=== PATIENT | female | born 1985 | race Caucasian/White ===

== ENCOUNTER 2018-06-24 07:27 | Day surgery (SDC) | payer OTHER ==
[2018-06-22 09:23] VITALS: BMI 28.0
[~2018-06-24 07:27] MED LIST: LACTATED RINGERS 1,000 ML IV SCH; LIDOCAINE 1% 20 ML VIAL (10MG/ML) FOR IV START INTRADERMA PRN; MIDAZOLAM 2 MG/2 ML VIAL IV PRN
[2018-06-24 08:07] VITALS: RESP 16; TEMP 97.4
[2018-06-24] MEDS ORDERED: LIDOCAINE 1% INJ 10MG/ML (20 ML MDV) ONE (09:01)
[2018-06-24] MEDS ORDERED: PROPOFOL 10 MG/ML 20 ML VIAL IV ONE (09:01)
--- NOTE | 2018-06-24 09:08 | P.GSHP ---
History of Present Illness H&P Date: 06/24/18 CHIEF COMPLAINT: Rectal bleeding HISTORY OF PRESENT ILLNESS: The patient is a 33-year-old female who presents with history of rectal bleeding. Lower endoscopy was offered for further evaluation and management. PAST MEDICAL HISTORY: Please see list. PAST SURGICAL HISTORY: Please see list. MEDICATIONS: Please see list. ALLERGIES: Please see list. SOCIAL HISTORY: No illicit drug use FAMILY HISTORY: No reports of Crohn disease or ulcerative colitis. REVIEW OF ORGAN SYSTEMS: CONSTITUTIONAL: No reports of fevers or chills. PHYSICAL EXAM: VITAL SIGNS: Stable GENERAL: Well-developed pleasant in no acute distress. HEENT: No scleral icterus. Extraocular movements grossly intact. Moist buccal mucosa. NECK: Supple without lymphadenopathy. CHEST: Unlabored respirations. Equal bilateral excursions. CARDIOVASCULAR: Regular rate and rhythm. Distal 2+ pulses. ABDOMEN: Soft, nontender, nondistended. MUSCULOSKELETAL: No clubbing, cyanosis, or edema. ASSESSMENT: 1. Rectal bleeding PLAN: 1. Recommend proceeding with a lower endoscopy Past Medical History Past Medical History: No Reported History Additional Past Medical History / Comment(s): Hemorrhoids/ rectal bleeding; hx of bronchitis History of Any Multi-Drug Resistant Organisms: None Reported Past Surgical History: Orthopedic Surgery Additional Past Surgical History / Comment(s): R hip arthroscopy; wisdom teeth Past Anesthesia/Blood Transfusion Reactions: No Reported Reaction Past Psychological History: No Psychological Hx Reported Smoking Status: Never smoker Past Alcohol Use History: None Reported Past Drug Use History: None Reported - Past Family History Father Family Medical History: No Reported History Medications and Allergies Home Medications Medication Instructions Recorded Confirmed Type Dextroamphetamine/Amphetamine 30 mg PO QAM 06/16/18 06/24/18 History [Adderall Xr] Etonogestrel [Nexplanon] 1 implant SQ [id number] 06/16/18 06/24/18 History Allergies Allergy/AdvReac Type Severity Reaction Status Date / Time No Known Allergies Allergy Verified 06/24/18 07:49 Surgical - Exam Vital Signs Temp Pulse Resp BP Pulse Ox 97.4 F L 64 16 107/59 100 06/24/18 07:54 06/24/18 07:54 06/24/18 07:54 06/24/18 07:54 06/24/18 07:54
--- NOTE | 2018-06-24 09:37 | P.PCN ---
Date of Procedure: 06/24/18 Description of Procedure: PREOPERATIVE DIAGNOSIS: History of rectal bleeding POSTOPERATIVE DIAGNOSIS: History of rectal bleeding Internal and external hemorrhoids, complicated, grade 3/4 Sigmoid colitis OPERATION: Colonoscopy to the ileocecal valve and appendiceal orifice Colonoscopy with cold forceps biopsies along sigmoid colon. SURGEON: Aletha Brown MD. ANESTHESIA: MAC. INDICATIONS: The patient is a 33-year-old female who presents for colonoscopy due to rectal bleeding. Benefits and risks were described and informed consent was obtained. DESCRIPTION OF PROCEDURE: The patient had undergone Gatorade, MiraLAX and Dulcolax prep. She had been brought into the operating room and laid in the left lateral decubitus position. After adequate intravenous sedation, the rectum was examined with 2% lidocaine jelly. External hemorrhoids were encountered. The rectal tone was within normal limits. No lesions were palpated in the rectal vault. An Olympus colonoscope was advanced until the ileocecal valve and appendiceal orifice were clearly viewed. The prep was excellent with clear visualization of the mucosal folds. The scope was removed with visualization of each mucosal fold. No scattered diverticulosis was encountered. No colonic polyps were found. Sigmoid focal colitis was found between 40 and 50 cm from the anal verge, biopsies were obtained. Retroflexion of the scope demonstrated grade 3 internal hemorrhoids without active bleeding or inflammation. The colon was desufflated. The patient had tolerated the procedure well. Withdrawal time was over 6 minutes. FINDINGS: Internal hemorrhoids, grade 3 External prolapsed hemorrhoids, grade 3 No arteriovenous malformations. No adenomatous polyps. No diverticulosis. Sigmoid focal colitis was found between 40 and 50 cm from the anal verge, biopsies were obtained. RECOMMENDATIONS: Lower endoscopy as needed Plan - Discharge Summary New Discharge Prescriptions: No Action Dextroamphetamine/Amphetamine [Adderall Xr] 30 mg PO QAM Etonogestrel [Nexplanon] 1 implant SQ [id number] Discharge Medication List Dextroamphetamine/Amphetamine [Adderall Xr] 30 mg PO QAM 06/16/18 [History] Etonogestrel [Nexplanon] 1 implant SQ [id number] 06/16/18 [History] Follow up Appointment(s)/Referral(s): Aletha Brown MD [STAFF PHYSICIAN] - As Needed Patient Instructions/Handouts: *Surgery [facility] - (Anesthesia) Endoscopy Discharge Instructions, Colonoscopy (GEN)
[2018-06-24 09:38] VITALS: BP 111/75; PULSE 74
--- NOTE | 2018-06-28 11:42 | CDI ---
Outpatient Documentation Clarification Form Date: 06/28/18 CDS/Staff Nuclear Weapons Officer Name: Keli Anthony Phone: If any questions, call Megan Rice Warehouse Lead at [phone] Patient Name: Katlyn Marshall Admit Date: 06/24/18 Discharge Date: 06/24/18 ATTENTION: The [facility] Coding Staff appreciate your assistance in clarifying documentation. Please respond to the clarification below the line at the bottom and electronically sign. The [facility] Coding staff will review the response and follow-up if needed. Please note: Queries are made part of the Legal Health Record. If you have any questions, please contact the Warehouse Lead. Dear Dr. Brown, What is the cause of the rectal bleeding? Colitis and hemorrhoids in notes Thank you for your kind consideration. KM 06/28/18 @ [address] [facility]
== END 2018-06-24 09:54 | disposition home or self-care (01) ==
LOC: ORWHC2ENDO 07:27
PROVIDERS: ATTEND Surgery Plastic and Reconstructive Surgery
DX: K64.2 Third degree hemorrhoids (principal); K64.4 Residual hemorrhoidal skin tags; K52.9 Noninfective gastroenteritis and colitis, unspecified; F98.8 Other specified behavioral and emotional disorders with onset usually occurring in childhood and adolescence; Z79.3 Long term (current) use of hormonal contraceptives; Z79.899 Other long term (current) drug therapy
CPT/HCPCS: 81025; 88305; 45380; J2001; J2704

== ENCOUNTER 2019-04-28 23:49 | Emergency (ER) | payer OTHER ==
--- NOTE | 2019-04-29 00:55 | ED ---
General Adult HPI - General Source: patient Mode of arrival: wheelchair Limitations: no limitations <Kel Patrick Magdy - Last Filed: 04/29/19 01:05> <PaolochiquisJesus - Last Filed: 04/29/19 02:13> - General Chief complaint: Chest Pain Stated complaint: Chest Tightness Time Seen by Provider: 04/29/19 00:03 - History of Present Illness Initial comments: Dictation was produced using [employer] dictation software. please excuse any grammatical, word or spelling errors. Chief Complaint: 33-year-old female presents with chest pain and left upper extremity weakness. History of Present Illness: 33-year-old female she presents today with chief complaint of chest pain. She states that the pain as sharp and radiates to her back. She also feels slightly weak in her left upper extremity. She reports that the pain does radiate to her left shoulder area. Patient has any past medical history. Patient has family history of cardiac disease. Patient denies any cardiac history. She does also report feeling slightly sick to her stomach. She states that prior to the onset of her symptoms she was having a intense discussion with her . She denies any history of anxiety. The ROS documented in this emergency department record has been reviewed and confirmed by me. Those systems with pertinent positive or negative responses have been documented in the HPI. All other systems are other negative and/or noncontributory. PHYSICAL EXAM: General Impression: Alert and oriented x3, not in acute distress HEENT: Normocephalic atraumatic, extra-ocular movements intact, pupils equal and reactive to light bilaterally, mucous membranes moist. Cardiovascular: Heart regular rate and rhythm, S1&S2 audible, no murmurs, rubs or gallops Chest: Lungs clear to auscultation bilaterally, no rhonchi, no wheeze, no rales Abdomen: Bowel sounds present, abdomen soft, non-tender, non-distended, no organomegaly Musculoskeletal: Pulses present and equal in all extremities, no peripheral edema Motor: no focal deficits noted Neurological: CN II-XII grossly intact, no focal motor or sensory deficits noted Skin: Intact with no visualized rashes Psych: Normal affect and mood ED course: 33-year-old female presents chief complaint of chest pain. Patient's chest pain is atypical. She does give some clinical features concerning for acute aortic dissection. On arrival are within acceptable limits. Patient not tachycardic nor is she hypoxic. She is not OF the pills and has no risk factors for pulmonary emboli or deep venous thrombosis. EKG obtained unremarkable.Patient is sent out to Dr. Frankel for follow-up of CT of the chest and lab evaluation. EKG interpretation: Ventricular rate 70, normal sinus rhythm, HI interval 166, care is 84, QTC 425. No HI prolongation, no QTC prolongation, no ST or T-wave changes noted. . Overall, this EKG is unremarkable (Kel Patrick) - Related Data Home Medications Medication Instructions Recorded Confirmed Dextroamphetamine/Amphetamine 30 mg PO QAM 06/16/18 04/28/19 [Adderall Xr] Etonogestrel [Nexplanon] 1 implant SQ [id number] 06/16/18 04/28/19 Allergies Allergy/AdvReac Type Severity Reaction Status Date / Time No Known Allergies Allergy Verified 04/28/19 23:56 Review of Systems ROS Other: All systems not noted in ROS Statement are negative. <Kel Patrick - Last Filed: 04/29/19 01:05> ROS Other: All systems not noted in ROS Statement are negative. <Jesus Brady - Last Filed: 04/29/19 02:13> ROS Statement: Those systems with pertinent positive or pertinent negative responses have been documented in the HPI. Past Medical History Past Medical History: No Reported History Additional Past Medical History / Comment(s): Hemorrhoids/ rectal bleeding; hx of bronchitis History of Any Multi-Drug Resistant Organisms: None Reported Past Surgical History: Orthopedic Surgery Additional Past Surgical History / Comment(s): R hip arthroscopy; wisdom teeth Past Anesthesia/Blood Transfusion Reactions: No Reported Reaction Past Psychological History: No Psychological Hx Reported Smoking Status: Never smoker Past Alcohol Use History: None Reported Past Drug Use History: None Reported - Past Family History Father Family Medical History: No Reported History <Kel Patrick - Last Filed: 04/29/19 01:05> General Exam Limitations: no limitations <Kel Patrick - Last Filed: 04/29/19 01:05> Course Vital Signs 04/28/19 04/29/19 23:52 00:18 Temperature 97.8 F Pulse Rate 81 Respiratory 18 18 Rate Blood Pressure 141/97 O2 Sat by Pulse 100 Oximetry Medical Decision Making - Lab Data Result diagrams: 04/29/19 01:16 04/29/19 01:16 <Jesus Brady - Last Filed: 04/29/19 02:13> - Lab Data Lab Results 04/29/19 04/29/19 04/29/19 Range/Units 01:16 01:16 01:16 WBC 9.3 (3.8-10.6) k/uL RBC 4.22 (3.80-5.40) m/uL Hgb 12.8 (11.4-16.0) gm/dL Hct 37.8 (34.0-46.0) % MCV 89.6 (80.0-100.0) fL MCH 30.3 (25.0-35.0) pg MCHC 33.8 (31.0-37.0) g/dL RDW 12.3 (11.5-15.5) % Plt Count 320 (150-450) k/uL Neutrophils % 72 % Lymphocytes % 18 % Monocytes % 5 % Eosinophils % 2 % Basophils % 1 % Neutrophils # 6.7 (1.3-7.7) k/uL Lymphocytes # 1.6 (1.0-4.8) k/uL Monocytes # 0.5 (0-1.0) k/uL Eosinophils # 0.2 (0-0.7) k/uL Basophils # 0.1 (0-0.2) k/uL PT 11.2 (9.0-12.0) sec INR 1.1 (<1.2) APTT 25.2 (22.0-30.0) sec Sodium 139 (137-145) mmol/L Potassium 4.0 (3.5-5.1) mmol/L Chloride 103 (98-107) mmol/L Carbon Dioxide 27 (22-30) mmol/L Anion Gap 9 mmol/L BUN 13 (7-17) mg/dL Creatinine 0.96 (0.52-1.04) mg/dL Est GFR (CKD-EPI)AfAm >90 (>60 ml/min/1.73 sqM) Est GFR (CKD-EPI)NonAf 79 (>60 ml/min/1.73 sqM) Glucose 98 (74-99) mg/dL Calcium 9.8 (8.4-10.2) mg/dL Magnesium 2.2 (1.6-2.3) mg/dL Total Bilirubin 0.3 (0.2-1.3) mg/dL AST 18 (14-36) U/L ALT 15 (9-52) U/L Alkaline Phosphatase 59 (38-126) U/L Troponin I (0.000-0.034) ng/mL Total Protein 7.9 (6.3-8.2) g/dL Albumin 4.6 (3.5-5.0) g/dL Lipase 83 (23-300) U/L 04/29/19 Range/Units 01:16 WBC (3.8-10.6) k/uL RBC (3.80-5.40) m/uL Hgb (11.4-16.0) gm/dL Hct (34.0-46.0) % MCV (80.0-100.0) fL MCH (25.0-35.0) pg MCHC (31.0-37.0) g/dL RDW (11.5-15.5) % Plt Count (150-450) k/uL Neutrophils % % Lymphocytes % % Monocytes % % Eosinophils % % Basophils % % Neutrophils # (1.3-7.7) k/uL Lymphocytes # (1.0-4.8) k/uL Monocytes # (0-1.0) k/uL Eosinophils # (0-0.7) k/uL Basophils # (0-0.2) k/uL PT (9.0-12.0) sec INR (<1.2) APTT (22.0-30.0) sec Sodium (137-145) mmol/L Potassium (3.5-5.1) mmol/L Chloride (98-107) mmol/L Carbon Dioxide (22-30) mmol/L Anion Gap mmol/L BUN (7-17) mg/dL Creatinine (0.52-1.04) mg/dL Est GFR (CKD-EPI)AfAm (>60 ml/min/1.73 sqM) Est GFR (CKD-EPI)NonAf (>60 ml/min/1.73 sqM) Glucose (74-99) mg/dL Calcium (8.4-10.2) mg/dL Magnesium (1.6-2.3) mg/dL Total Bilirubin (0.2-1.3) mg/dL AST (14-36) U/L ALT (9-52) U/L Alkaline Phosphatase (38-126) U/L Troponin I <0.012 (0.000-0.034) ng/mL Total Protein (6.3-8.2) g/dL Albumin (3.5-5.0) g/dL Lipase (23-300) U/L Disposition <Kel Patrick - Last Filed: 04/29/19 01:05> Is patient prescribed a controlled substance at d/c from ED?: No <Jesus Brady - Last Filed: 04/29/19 02:13> Clinical Impression: Chest pain Disposition: HOME SELF-CARE Condition: Good Instructions (If sedation given, give patient instructions): Chest Pain (ED) Referrals: Thomas May MD [Primary Care Provider] - 1-2 days
--- NOTE | 2019-04-29 00:57 | XR ---
EXAMINATION TYPE: XR chest 1V DATE OF EXAM: 04/29/2019 COMPARISON: 02/03/2013 HISTORY: Chest pain TECHNIQUE: Single frontal view of the chest is obtained. FINDINGS: Heart and mediastinum are normal. Lungs are clear. Diaphragm is normal. Bony thorax appear s normal. There are chest leads. IMPRESSION: Normal chest. No change.
[2019-04-29 01:30] LABS: Basophils # (A) 0.1 k/uL (0-0.2); Basophils % (A) 1 %; Eosinophils # (A) 0.2 k/uL (0-0.7); Eosinophils % (A) 2 %; HCT 37.8 % (34.0-46.0); HGB 12.8 gm/dL (11.4-16.0); Lymphocytes # (A) 1.6 k/uL (1.0-4.8); Lymphocytes % (A) 18 %; MCH 30.3 pg (25.0-35.0); MCHC 33.8 g/dL (31.0-37.0); MCV 89.6 fL (80.0-100.0); Mean Platelet Volume 7.2; Monocytes # (A) 0.5 k/uL (0-1.0); Monocytes % (A) 5 %; Neutrophils # (A) 6.7 k/uL (1.3-7.7); Neutrophils % (A) 72 %; Platelet Count 320 k/uL (150-450); RBC 4.22 m/uL (3.80-5.40); RDW 12.3 % (11.5-15.5); WBC 9.3 k/uL (3.8-10.6)
[2019-04-29 01:43] LABS: ALT 15 U/L (9-52); AST 18 U/L (14-36); African American GFR (CKD) >90 (>60 ml/min/1.73 sqM); Albumin 4.6 g/dL (3.5-5.0); Alkaline Phosphatase 59 U/L (38-126); Anion Gap 9 mmol/L; Blood Urea Nitrogen 13 mg/dL (7-17); Calcium 9.8 mg/dL (8.4-10.2); Carbon Dioxide 27 mmol/L (22-30); Chloride 103 mmol/L (98-107); Glucose 98 mg/dL (74-99); INR 1.1 (<1.2); Magnesium 2.2 mg/dL (1.6-2.3); Partial Thromboplastin Time 25.2 sec (22.0-30.0); Prothrombin Time 11.2 sec (9.0-12.0); Sodium 139 mmol/L (137-145); Total Bilirubin 0.3 mg/dL (0.2-1.3); Total Protein 7.9 g/dL (6.3-8.2)
--- NOTE | 2019-04-29 02:00 | CT ---
EXAMINATION TYPE: CT angio chest DATE OF EXAM: 04/29/2019 1:33 AM COMPARISON: None HISTORY: Patient presents with chest tightness. CT DLP: 316.1 mGycm Automated exposure control for dose reduction was used. CONTRAST: CTA scan of the thorax is performed with IV Contrast, patient injected with 70mL mL of Isovue 370, pu lmonary embolism protocol. There are 3-D post processed images.. FINDINGS: The lungs are clear of infiltrate. There is no pleural effusion. There is no pneumothorax. Heart size is normal. There is no pericardial effusion. There are no hilar masses. There is no mediastinal jovita opathy. There is normal contrast opacification of the thoracic aorta. There is no aneurysm or dissect ion. There is normal contrast opacification of the arteries. There are no filling defects. Upper abdo caitlin soft tissues are intact. Bony thorax is intact. Thoracic vertebra have normal spacing and alignment. IMPRESSION: NORMAL EXAM. NO EVIDENCE OF PULMONARY EMBOLISM.
[2019-04-29 02:34] VITALS: BP 109/65; PULSE 64; RESP 16; TEMP 98
== END 2019-04-29 02:43 | disposition home or self-care (01) ==
LOC: EC 23:49
DX: R07.89 Other chest pain (principal); R53.1 Weakness; Z79.3 Long term (current) use of hormonal contraceptives; Z82.49 Family history of ischemic heart disease and other diseases of the circulatory system
CPT/HCPCS: 36415; 93005; 80053; 83690; 83735; 84484; 85025; 85610; 85730; 71045; 71275; 99285; Q9967

== ENCOUNTER → 2019-05-23 | Outpatient (CLI) | payer OTHER ==
--- NOTE | 2019-05-23 12:36 | ECHOF ---
Referral Reason:R07.9 Chest pain MEASUREMENTS -------- HEIGHT: 160.0 cm WEIGHT: 66.7 kg BP: 111/65 RVIDd: 2.3 cm (< 3.3) IVSd: 0.9 cm (0.6 - 1.1) LVIDd: 3.7 cm (3.9 - 5.3) LVPWd: 0.9 cm (0.6 - 1.1) IVSs: 1.3 cm LVIDs: 2.5 cm LVPWs: 1.5 cm LA Diam: 3.1 cm (2.7 - 3.8) LAESV Index (A-L): 18.92 ml/m Ao Diam: 2.7 cm (2.0 - 3.7) AV Cusp: 1.7 cm (1.5 - 2.6) MV EXCURSION: 17.766 mm (> 18.000) MV EF SLOPE: 148 mm/s (70 - 150) EPSS: 0.4 cm MV E Roger: 0.74 m/s MV DecT: 291 ms MV A Roger: 0.56 m/s MV E/A Ratio: 1.34 RAP: 5.00 mmHg RVSP: 17.29 mmHg TAPSE: 16.66 mm FINDINGS -------- Sinus rhythm. This was a technically adequate study. The left ventricular size is normal. Left ventricular wall thickness is normal. Overall left vent ricular systolic function is normal with, an EF between 60 - 65 %. The right ventricle is normal in size. Normal LA size by volume 22+/-6 ml/m2. The right atrium is normal in size. Interatrial and interventricular septum intact. The aortic valve is trileaflet and appears structurally normal. The mitral valve leaflets are mildly thickened. No regurgitation noted Right ventricular systolic pressure is normal at < 35 mmHg. The aortic root size is normal. Normal inferior vena cava with normal inspiratory collapse consistent with estimated right atrial pre ssure of 5 mmHg. There is no pericardial effusion. CONCLUSIONS -------- 1. Sinus rhythm. 2. This was a technically adequate study. 3. The left ventricular size is normal. 4. Left ventricular wall thickness is normal. 5. Overall left ventricular systolic function is normal with, an EF between 60 - 65 %. 6. The right ventricle is normal in size. 7. Normal LA size by volume 22+/-6 ml/m2. 8. The right atrium is normal in size. 9. Interatrial and interventricular septum intact. 10. The aortic valve is trileaflet and appears structurally normal. 11. The mitral valve leaflets are mildly thickened. 12. No regurgitation noted 13. Right ventricular systolic pressure is normal at < 35 mmHg. 14. The aortic root size is normal. 15. Normal inferior vena cava with normal inspiratory collapse consistent with estimated right atrial pressure of 5 mmHg. 16. There is no pericardial effusion. REGISTRATION SCHEDULING SPECIALIST: Whit Ortega RDCS
== END ==
LOC: RADECHMAIN 11:24
PROVIDERS: ATTEND Family Medicine
DX: I05.9 Rheumatic mitral valve disease, unspecified (principal)
CPT/HCPCS: 93306

== ENCOUNTER → 2019-06-23 | Outpatient (CLI) | payer OTHER ==
--- NOTE | 2019-06-23 10:11 | US ---
EXAMINATION TYPE: US gallbladder DATE OF EXAM: 06/23/2019 COMPARISON: NONE CLINICAL HISTORY: R10.84 abd pain. Abdomen pain, pressure and nausea EXAM MEASUREMENTS: Liver Length: 15.4 cm Gallbladder Wall: 0.2 cm CBD: 0.4 cm Right Kidney: 10.1 x 4.7 x 4.5 cm Pancreas: visualized portions wnl, tail obscured by overlying midline bowel gas Liver: 1.1 x 1.1 x 1.2cm hyperechoic area right lobe Gallbladder: 0.3cm non mobile hyperechoic focus along posterior wall without shadowing Evidence for sonographic Grewal's sign: yes CBD: wnl Right Kidney: wnl IMPRESSION: 1. Probable hemangioma right hepatic lobe. Dedicated CT of the abdomen. 2. Suspect small gallstone.
== END | disposition home or self-care (01) ==
LOC: RADUSWWP 09:31
PROVIDERS: ATTEND Surgery Plastic and Reconstructive Surgery
DX: R10.84 Generalized abdominal pain (principal)
CPT/HCPCS: 76705

== ENCOUNTER 2019-06-30 12:34 | Day surgery (SDC) | payer OTHER ==
--- NOTE | 2019-06-30 08:48 | P.GSHP ---
History of Present Illness H&P Date: 06/30/19 CHIEF COMPLAINT: GERD HISTORY OF PRESENT ILLNESS: The patient is a 34-year-old female who presents reports gastroesophageal reflux disease. Upper endoscopy was offered for further evaluation and management. PAST MEDICAL HISTORY: Please see list. PAST SURGICAL HISTORY: Please see list. MEDICATIONS: Please see list. ALLERGIES: Please see list. SOCIAL HISTORY: No illicit drug use FAMILY HISTORY: No reports of Crohn disease or ulcerative colitis. REVIEW OF ORGAN SYSTEMS: CONSTITUTIONAL: No reports of fevers or chills. GI: Denies any blood in stools or constipation. PHYSICAL EXAM: VITAL SIGNS: Stable GENERAL: Well-developed and pleasant in no acute distress. HEENT: No scleral icterus. Extraocular movements grossly intact. Moist buccal mucosa. NECK: Supple without lymphadenopathy. CHEST: Unlabored respirations. Equal bilateral excursions. CARDIOVASCULAR: Regular rate and rhythm. Distal 2+ pulses. ABDOMEN: Soft, nondistended. MUSCULOSKELETAL: No clubbing, cyanosis, or edema. ASSESSMENT: 1. Gastroesophageal reflux disease PLAN: 1. Recommend proceeding with an upper endoscopy Past Medical History Past Medical History: No Reported History Additional Past Medical History / Comment(s): Hemorrhoids/ rectal bleeding; hx of bronchitis History of Any Multi-Drug Resistant Organisms: None Reported Past Surgical History: Orthopedic Surgery Additional Past Surgical History / Comment(s): R hip arthroscopy; wisdom teeth Past Anesthesia/Blood Transfusion Reactions: No Reported Reaction Past Psychological History: No Psychological Hx Reported Smoking Status: Never smoker Past Alcohol Use History: None Reported Past Drug Use History: None Reported - Past Family History Father Family Medical History: No Reported History Medications and Allergies Home Medications Medication Instructions Recorded Confirmed Type Dextroamphetamine/Amphetamine 30 mg PO QAM 06/16/18 04/28/19 History [Adderall Xr] Etonogestrel [Nexplanon] 1 implant SQ [id number] 06/16/18 04/28/19 History Allergies Allergy/AdvReac Type Severity Reaction Status Date / Time No Known Allergies Allergy Verified 04/28/19 23:56
[~2019-06-30 12:34] MED LIST changes: +DEXAMETHASONE SOD PHOSPHATE 10 MG/ML 1 ML VIAL IV ONE; -MIDAZOLAM 2 MG/2 ML VIAL IV PRN; +ONDANSETRON 4 MG/2 ML VIAL IVP ONE
[2019-06-30 13:11] VITALS: RESP 18; TEMP 98.4
[2019-06-30] MEDS ORDERED: LIDOCAINE 1% INJ 10MG/ML (20 ML MDV) ONE (14:07)
[2019-06-30] MEDS ORDERED: PROPOFOL 10 MG/ML 20 ML VIAL IV ONE (14:07)
--- NOTE | 2019-06-30 14:22 | P.PCN ---
Date of Procedure: 06/30/19 Description of Procedure: PREOPERATIVE DIAGNOSIS: Gastroesophageal reflux disease. POSTOPERATIVE DIAGNOSIS: Gastritis. Gastroesophageal reflux disease. OPERATION: Esophagogastroduodenoscopy with biopsies along antrum. SURGEON: Aletha Brown MD ANESTHESIA: MAC. INDICATIONS: The patient is a 34-year-old female who presents with a history of reflux disease. Benefits and risks of the procedure were described. Informed consent was obtained. DESCRIPTION: The patient was brought into the endoscopy suite and laid in the left lateral decubitus position. An Olympus gastroscope was passed along the posterior oropharynx down to the distal esophagus where the squamocolumnar junction was encountered at 36 cm from the incisors. The stomach was entered and no bile reflux was found. Additional findings are listed below. Biopsies with cold forceps were obtained of the antrum. The first through third portion of the duodenum was examined and unremarkable. Retroflexion of the scope confirmed Hill grade 2 lower esophageal valve. The squamocolumnar junction demonstrated LA grade B erosive esophagitis. The stomach was desufflated. The patient tolerated the procedure well. FINDINGS: Squamocolumnar junction 36 cm from the incisors. Diaphragmatic hiatus at 36 cm. Hill grade 2 lower esophageal valve. LA grade B erosive esophagitis. No active duodenitis. Chronic gastritis RECOMMENDATIONS: Upper endoscopy as needed.
[2019-06-30 14:38] VITALS: BP 118/64; PULSE 68
== END 2019-06-30 15:14 | disposition home or self-care (01) ==
LOC: ORWHC2ENDO 12:34
PROVIDERS: ATTEND Surgery Plastic and Reconstructive Surgery
DX: K22.10 Ulcer of esophagus without bleeding (principal); K29.50 Unspecified chronic gastritis without bleeding; K21.9 Gastro-esophageal reflux disease without esophagitis; Z87.19 Personal history of other diseases of the digestive system; Z79.3 Long term (current) use of hormonal contraceptives; Z79.899 Other long term (current) drug therapy
CPT/HCPCS: 81025; 43239; J2001; J2704; 88305

== ENCOUNTER 2019-09-02 06:44 | Day surgery (SDC) | payer OTHER ==
[2019-08-29 18:32] VITALS: BMI 26.7
--- NOTE | 2019-09-01 19:25 | P.GSHP ---
History of Present Illness H&P Date: 09/02/19 CHIEF COMPLAINT: Cholecystitis HISTORY OF PRESENT ILLNESS: The patient is a 34-year-old female who presents with history of epigastric including right upper quadrant abdominal pain. She underwent diagnostic studies for her gallbladder. Separately her clinical picture was consistent with cholecystitis. Now she presents for surgical intervention. PAST MEDICAL HISTORY: Please see list PAST SURGICAL HISTORY: Please see list MEDICATIONS: Please see list ALLERGIES: Please see list SOCIAL HISTORY: Please see list FAMILY HISTORY: Please see list REVIEW OF ORGAN SYSTEMS: CONSTITUTIONAL: No reports of fevers or chills. PHYSICAL EXAM: VITAL SIGNS: Afebrile vital signs stable GENERAL: Well-developed pleasant in no acute distress. HEENT: No scleral icterus. Extraocular movements grossly intact. Moist buccal mucosa. NECK: Supple without lymphadenopathy. CHEST: Unlabored respirations. Equal bilateral excursions. CARDIOVASCULAR: Regular rate regular rhythm rhythm. Distal 2+ pulses. ABDOMEN: Soft, nondistended. MUSCULOSKELETAL: No clubbing, cyanosis, or edema. NEURO: Cranial nerves II to XII within normal limits. No focal or lateralizing signs. PSYCH: Alert and oriented to person, place and time. SKIN: Well-perfused good skin turgor. ASSESSMENT: 1. Epigastric and right upper quadrant abdominal pain 2. Chronic cholecystitis 3. Symptomatic gallstones. PLAN: 1. Will need a robotic cholecystectomy possible open. Benefits and risks were described. 2. Heparin for DVT prophylaxis 5000 units. 3. Antibiotic prophylaxis. Past Medical History Past Medical History: GERD/Reflux, GI Bleed, Musculoskeletal Disorder Additional Past Medical History / Comment(s): Hemorrhoids/rectal bleeding; hx of bronchitis, past hx hip prob, tinnitus. Gallstones currently History of Any Multi-Drug Resistant Organisms: None Reported Past Surgical History: Orthopedic Surgery Additional Past Surgical History / Comment(s): R hip arthroscopy; wisdom teeth. Colonoscopy 2018, EGD 06/30/19. Past Anesthesia/Blood Transfusion Reactions: No Reported Reaction, Family History of Problems w/ Anesthesia Additional Past Anesthesia/Blood Transfusion Reaction / Comment(s): Grandmother requires more Rx for sedation. Smoking Status: Never smoker - Past Family History Father Family Medical History: Cancer Additional Family Medical History / Comment(s): skin CA Medications and Allergies Home Medications Medication Instructions Recorded Confirmed Type Dextroamphetamine/Amphetamine 30 mg PO QAM 06/16/18 08/29/19 History [Adderall Xr] Omeprazole 20 mg PO DAILY #14 tablet. 06/30/19 08/29/19 Rx Allergies Allergy/AdvReac Type Severity Reaction Status Date / Time shellfish derived [Shellfish] Allergy Rash/Hives Verified 08/29/19 18:10
[~2019-09-02 06:44] MED LIST changes: +ACETAMINOPHEN TAB 500 MG TAB PO STA; +GABAPENTIN 300 MG CAP PO STA; +HEPARIN SODIUM,PORCINE 5,000 UNIT/ML 1 ML VIAL SQ ONE; +HYDROmorphone 0.5 MG/0.5 ML SYRINGE IVP PRN; +INDOCYANINE GREEN 25 MG VIAL IV ONE; +SCOPOLAMINE 1.5MG/72HR PATCH TRANSDERM STA
[2019-09-02] MEDS ORDERED: diphenhydrAMINE 50 MG/ML 1 ML VIAL IVP STA (07:58)
[2019-09-02] MEDS ORDERED: DEXAMETHASONE SOD PHOSPHATE 10 MG/ML 1 ML VIAL IV STA (07:58)
[2019-09-02] MEDS ORDERED: INDOCYANINE GREEN 25 MG VIAL IV STA (07:58)
[2019-09-02] MEDS ORDERED: LEVOFLOXACIN 750MG-D5W PMX 750 MG in DEXTROSE/WATER 1 150ML.BAG IVPB STA (08:00)
[2019-09-02 08:03] LABS: Basophils # (A) 0.1 k/uL (0-0.2); Basophils % (A) 1 %; Eosinophils # (A) 0.2 k/uL (0-0.7); Eosinophils % (A) 2 %; HCT 36.2 % (34.0-46.0); HGB 12.2 gm/dL (11.4-16.0); Lymphocytes # (A) 1.6 k/uL (1.0-4.8); Lymphocytes % (A) 17 %; MCH 30.6 pg (25.0-35.0); MCHC 33.7 g/dL (31.0-37.0); MCV 90.7 fL (80.0-100.0); Mean Platelet Volume 7.7; Monocytes # (A) 0.5 k/uL (0-1.0); Monocytes % (A) 6 %; Neutrophils # (A) 6.9 k/uL (1.3-7.7); Neutrophils % (A) 74 %; Platelet Count 311 k/uL (150-450); RBC 3.99 m/uL (3.80-5.40); RDW 12.1 % (11.5-15.5); WBC 9.4 k/uL (3.8-10.6)
[2019-09-02] MEDS ORDERED: SUCCINYLCHOLINE CHLORIDE 100 MG/5 ML SYR IV ONE (08:12)
[2019-09-02] MEDS ORDERED: GLYCOPYRROLATE 0.2 MG/ML 2 ML VIAL ONE (08:12)
[2019-09-02] MEDS ORDERED: LIDOCAINE 1% INJ 10MG/ML (20 ML MDV) ONE (08:12)
[2019-09-02] MEDS ORDERED: ROCURONIUM BROMIDE 10 MG/ML 10 ML VIAL IV ONE (08:12)
[2019-09-02] MEDS ORDERED: PROPOFOL 10 MG/ML 20 ML VIAL IV ONE (08:12)
[2019-09-02] MEDS ORDERED: fentaNYL (PF) 50 MCG/ML 2 ML AMP ONE (08:12)
[2019-09-02] MEDS ORDERED: NEOSTIGMINE 1 MG/ML 10 ML VIAL ONE (08:12)
[2019-09-02] MEDS ORDERED: diphenhydrAMINE 50 MG/ML 1 ML VIAL ONE (08:12)
[2019-09-02] MEDS ORDERED: KETAMINE 10 MG/ML 20 ML VIAL ONE (08:12)
[2019-09-02] MEDS ORDERED: ceFAZolin 1,000 MG VIAL IVPB ONE (08:17)
[2019-09-02 08:18] LABS: ALT 10 U/L (4-34); AST 17 U/L (14-36); African American GFR (CKD) >90 (>60 ml/min/1.73 sqM); Albumin 3.8 g/dL (3.5-5.0); Alkaline Phosphatase 49 U/L (38-126); Anion Gap 8 mmol/L; Blood Urea Nitrogen 15 mg/dL (7-17); Carbon Dioxide 26 mmol/L (22-30); Chloride 106 mmol/L (98-107); Glucose 85 mg/dL (74-99); Non-African American GFR(CKD) 89 (>60 ml/min/1.73 sqM); Potassium 4.3 mmol/L (3.5-5.1); Sodium 140 mmol/L (137-145); Total Bilirubin 0.4 mg/dL (0.2-1.3); Total Protein 6.9 g/dL (6.3-8.2)
[2019-09-02] MEDS ORDERED: INDOCYANINE GREEN 25 MG VIAL IV ONE (08:45)
[2019-09-02] MEDS ORDERED: LACTATED RINGERS 1,000 ML IV ONE (09:12)
--- NOTE | 2019-09-02 09:27 | P.OP ---
Date of Procedure: 09/02/19 Description of Procedure: SURGEON: ALETHA BROWN MD PREOPERATIVE DIAGNOSES: 1. Right upper quadrant abdominal pain 2. Chronic cholecystitis 3. Symptomatic gallstones 4. Pre-existing urinary tract infection POSTOPERATIVE DIAGNOSES: 1. Right upper quadrant abdominal pain 2. Chronic cholecystitis 3. Symptomatic gallstones 4. Pre-existing urinary tract infection OPERATION: Robotic-assisted da Tiara Xi laparoscopic cholecystectomy, multiport with FIREFLY ESTIMATED BLOOD LOSS: 10 mL. SPECIMENS REMOVED: Gallbladder. COMPLICATIONS: None. OPERATIVE FINDINGS: 1. Chronic cholecystitis 2. Console time 10 minutes INDICATIONS: The patient is a 34-year-old female who presents with cholelcystitis. Surgical intervention with a laparoscopic cholecystectomy was described at length including injury to the biliary tree, bleeding, infection, need for further surgery. Informed consent was obtained. Robotic assisted laparoscopic approach was described. Benefits and risks of the procedure including but not limited to bleeding, infection, injury to the biliary tree was described. Informed consent was obtained. DESCRIPTION OF PROCEDURE: Patient was brought to the operating room, placed in supine position. After general induction, the abdomen had been prepped and draped in standard sterile fashion. The robotic da Tiara XI system was primed. After a timeout protocol was performed, the patient had been prepped and draped in standard sterile fashion. The patient was injected with indocyanine green. A 5 mm 0 degrees laparoscopic trocar entry was performed along the left upper quadrant. The abdomen insufflated to 15 mmHg pressure which was tolerated well. Diagnostic laparoscopy demonstrated no injury to bowel viscera or mesentery. The liver surface was unremarkable. Next, two 8 mm robotic ports were placed along the right upper abdomen. The camera 8-mm port was maintained along the epigastrium. Another 8 mm port was placed along the left upper abdominal wall after exchanging the 5 mm port. Please note that the ports were placed at least 10 to 15 cm away from the target anatomy of the gallbladder. The robot was docked along the left lateral abdomen. The patient was repositioned in reverse Trendelenburg position. Using a grasper for arm 3, a grasper for arm 4, including hook cautery for arm 1, the robotic system was docked and primed as described. Instruments were interchanged by the sales office assistant including hook cautery, Bovie cautery and clip appliers. I had sat at the console. The gallbladder fundus was retracted over the dome of the liver. Initial attention was brought to the infundibulum which was gently retracted in the inferior lateral approach. Using a grasper, the cystic duct including the cystic artery was carefully skeletonized. FIREFLY was used to identify the cystic artery and cystic structures. A critical view of safety was obtained. Large PLASTIC clips were used throughout the entire case. Using a clip inspector raw quartz 2 clips were placed proximally, and 1 clip was placed between the infundibulum and cystic duct and divided using cautery. Next, the cystic artery was similarly clipped and cauterized. Electro-Bovie cautery was used to remove the gallbladder from the hepatic fossa. Hemostasis was checked and found to be adequate. The robot was undocked. I re-scrubbed into the case. Using a 10 mm Endo Catch bag via the left upper quadrant incision, the specimen was removed from the abdominal cavity. All pneumoperitoneum instruments were evacuated from the abdominal cavity. The incisions were reapproximated using 4-0 Monocryl in an interrupted subcuticular fashion. Fascial defects were less than 8 mm in size. Please note along the trocar sites, local anesthetic was placed as a field block prior to insertion of all instruments. Liquid glue was applied to the skin. At the end of the procedure needle, sponge, and instrument count had been verified correct by the career resource technician. The patient was transferred to postanesthesia care unit in stable condition. Intraoperative films were shared with the patient's family who were very pleased with the level of care. Plan - Discharge Summary Discharge Rx Participant: No New Discharge Prescriptions: New Ibuprofen [Motrin] 600 mg PO Q8HR PRN #30 tab PRN Reason: Pain Acetaminophen Tab [Tylenol Tab] 1,000 mg PO Q6HR PRN #30 tablet PRN Reason: Pain Simethicone [Gas-X] 125 mg PO AC-TID PRN #20 capsule PRN Reason: Abdominal Distention Continue Dextroamphetamine/Amphetamine [Adderall Xr] 30 mg PO QAM Discontinued Omeprazole 20 mg PO DAILY #14 tablet.dr Discharge Medication List Dextroamphetamine/Amphetamine [Adderall Xr] 30 mg PO QAM 06/16/18 [History] Acetaminophen Tab [Tylenol Tab] 1,000 mg PO Q6HR PRN #30 tablet 09/02/19 [Rx] Ibuprofen [Motrin] 600 mg PO Q8HR PRN #30 tab 09/02/19 [Rx] Simethicone [Gas-X] 125 mg PO AC-TID PRN #20 capsule 09/02/19 [Rx] Follow up Appointment(s)/Referral(s): Aletha Brown MD [STAFF PHYSICIAN] - 09/06/19 Patient Instructions/Handouts: Laparoscopic Cholecystectomy (DC) Activity/Diet/Wound Care/Special Instructions: No lifting over 10 pounds in 2 weeks until Sep 16. December shower. No bath tub soaks for two weeks until Sep 16 Diet as tolerated. No driving while on narcotics. Use Tylenol and ibuprofen or Aleve scheduled for the next 24-48 hours for best pain relief. Use ice along incisions for the today to prevent swelling. Discharge Disposition: HOME SELF-CARE
[2019-09-02 09:32] VITALS: TEMP 97.1
[2019-09-02 09:45] VITALS: RESP 16
[2019-09-02] MEDS ORDERED: SIMETHICONE 80 MG CHEWABLE PO SCH (10:00)
[2019-09-02 10:41] VITALS: BP 109/71; PULSE 78
== END 2019-09-02 11:18 | disposition home or self-care (01) ==
LOC: OR 06:44
PROVIDERS: ATTEND Surgery Plastic and Reconstructive Surgery
DX: K81.1 Chronic cholecystitis (principal); N39.0 Urinary tract infection, site not specified; F90.9 Attention-deficit hyperactivity disorder, unspecified type; F32.9 Major depressive disorder, single episode, unspecified; F41.9 Anxiety disorder, unspecified; K21.9 Gastro-esophageal reflux disease without esophagitis; Z91.013 Allergy to seafood; Z79.899 Other long term (current) drug therapy; Z87.19 Personal history of other diseases of the digestive system; Z98.818 Other dental procedure status; Z80.8 Family history of malignant neoplasm of other organs or systems
CPT/HCPCS: 88304; 80053; 85025; 47562; J1200; J1644; J1100; J2710; J2405; J0690; J2001; J3010; J0330; J2704

== ENCOUNTER 2020-08-15 23:09 | Emergency (ER) | payer OTHER ==
[2020-08-15] MEDS ORDERED: HYDROmorphone 1 MG/ML 1 ML SYRINGE IVP STA (23:36)
[2020-08-15] MEDS ORDERED: diphenhydrAMINE 50 MG/ML 1 ML VIAL IVP STA (23:36)
[2020-08-15] MEDS ORDERED: ONDANSETRON 4 MG/2 ML VIAL IVP STA (23:36)
[2020-08-15] MEDS ORDERED: SODIUM CHLORIDE 0.9% 1,000 ML IV ONE (23:38)
[2020-08-15] MEDS ORDERED: KETOROLAC 15 MG/ML 1 ML VIAL IVP STA (23:45)
--- NOTE | 2020-08-16 00:06 | ED ---
General Adult HPI - General Chief complaint: Abdominal Pain Stated complaint: Rectal post op pain Time Seen by Provider: 08/15/20 23:22 Source: patient Mode of arrival: ambulatory Limitations: no limitations - History of Present Illness Initial comments: 35 year-old female patient presents to the emergency department for evaluation of increased rectal pain after having hemorrhoidectomy on 08/13/20 with a doctor in [place]. Patient states she has not yet had a bowel movement. States she feels constipated and the pain is much worse. Patient has been taking hydrocodone and her stool softeners without relief. Denies any fever, vomiting, or rectal bleeding. Patient denies any recent rash, cough, shortness of breath, chest pain, abdominal pain, nausea, vomiting, numbness, tingling, dizziness, weakness, hematuria, dysuria, urinary urgency, urinary frequency, headache, visual changes, or any other complaints. - Related Data Home Medications Medication Instructions Recorded Confirmed Dextroamphetamine/Amphetamine 30 mg PO QAM 06/16/18 08/29/19 [Adderall Xr] Previous Rx's Medication Instructions Recorded Acetaminophen Tab [Tylenol Tab] 1,000 mg PO Q6HR PRN #30 tablet 09/02/19 Ibuprofen [Motrin] 600 mg PO Q8HR PRN #30 tab 09/02/19 Simethicone [Gas-X] 125 mg PO AC-TID PRN #20 capsule 09/02/19 Allergies Allergy/AdvReac Type Severity Reaction Status Date / Time shellfish derived [Shellfish] Allergy Rash/Hives Verified 08/15/20 23:14 Review of Systems ROS Statement: Those systems with pertinent positive or pertinent negative responses have been documented in the HPI. ROS Other: All systems not noted in ROS Statement are negative. Past Medical History Past Medical History: GERD/Reflux, GI Bleed, Musculoskeletal Disorder Additional Past Medical History / Comment(s): Hemorrhoids/rectal bleeding; hx of bronchitis, past hx hip prob, tinnitus. Gallstones currently History of Any Multi-Drug Resistant Organisms: None Reported Past Surgical History: Hysterectomy, Orthopedic Surgery Additional Past Surgical History / Comment(s): R hip arthroscopy; wisdom teeth. Colonoscopy 2018, EGD 06/30/19., hemorroidectomy Past Anesthesia/Blood Transfusion Reactions: No Reported Reaction, Family History of Problems w/ Anesthesia Additional Past Anesthesia/Blood Transfusion Reaction / Comment(s): Grandmother requires more Rx for sedation. Past Psychological History: ADD/ADHD, Anxiety, Depression Smoking Status: Never smoker Past Alcohol Use History: Rare Past Drug Use History: None Reported - Past Family History Father Family Medical History: Cancer Additional Family Medical History / Comment(s): skin CA General Exam Limitations: no limitations General appearance: alert, in no apparent distress, other (This is a well-develo ped, well-nourished adult female patient in mild distress related pain. Vital signs upon presentation are temperature 99.2F, pulse 114, respirations 22, blood pressure 107/77, pulse ox 99% on room air.) Respiratory exam: Present: normal lung sounds bilaterally. Absent: respiratory distress, wheezes, rales, rhonchi, stridor Cardiovascular Exam: Present: regular rate, normal rhythm, normal heart sounds. Absent: systolic murmur, diastolic murmur, rubs, gallop, clicks Rectal exam: Present: other (Swelling noted, no bleeding, pink tissue. No drainage or necrosis noted) Neurological exam: Present: alert, oriented X3, CN II-XII intact Psychiatric exam: Present: normal affect, normal mood Skin exam: Present: warm, dry, intact, normal color. Absent: rash Course Vital Signs 08/15/20 23:11 Temperature 99.3 F Pulse Rate 114 H Respiratory 22 Rate Blood Pressure 107/77 O2 Sat by Pulse 99 Oximetry Medical Decision Making - Medical Decision Making 35-year-old female patient presents to the emergency department today for evaluation of rectal pain. She is postop day #3 from hemorrhoidectomy. Has not had a bowel movement. Patient is quite uncomfortable upon initial evaluation. Physical examination of the rectal area did not reveal any bleeding, there is some mild swelling noted. She was given IV fluids, pain medications. Upon reevaluation she is resting comfortably in bed. She is instructed take magnesium citrate to 8 with bowel movements if she has not had results by 10AM. She'll be discharged follow-up with her surgeon for further evaluation as soon as possible. Return parameters were discussed in detail. She verbalizes understanding and agrees with this plan. Disposition Clinical Impression: Rectal pain, Post-op pain Disposition: HOME SELF-CARE Condition: Good Instructions (If sedation given, give patient instructions): Hemorrhoidectomy (DC) Additional Instructions: Take the other bottle of magnesium citrate 12 hours after the first if you have not had a bowel movement. Continue home pain medications as needed. Follow-up with your surgeon for further evaluation as soon as possible. Return to the emergency department for any new, worsening, or concerning symptoms. Is patient prescribed a controlled substance at d/c from ED?: No Referrals: Thomas Mya MD [Primary Care Provider] - 1-2 days Time of Disposition: 00:59
[2020-08-16 02:07] VITALS: BP 98/64; PULSE 79; RESP 12; TEMP 98
== END 2020-08-16 01:35 | disposition home or self-care (01) ==
LOC: EC 23:09
DX: G89.18 Other acute postprocedural pain (principal); K62.89 Other specified diseases of anus and rectum; F90.9 Attention-deficit hyperactivity disorder, unspecified type; Z79.899 Other long term (current) drug therapy; Z91.013 Allergy to seafood; Z98.890 Other specified postprocedural states
CPT/HCPCS: 99283; 96374; 96375 ×3; 96361 ×2; J1200; J2405; J1170; J1885

== ENCOUNTER 2020-08-16 10:53 | Emergency (ER) | payer OTHER ==
--- NOTE | 2020-08-16 11:27 | ED ---
Abdominal Pain HPI - General Chief Complaint: Abdominal Pain Stated Complaint: pain/revisit Time Seen by Provider: 08/16/20 11:02 Source: patient Mode of arrival: ambulatory Limitations: no limitations - History of Present Illness Initial Comments: 35yo female presenting for cc of constipation/stool ball. pt states that she is POD day #3, Thursday she had a hemorrhoidectomy performed by Dr. Deluna in [place]. pt states she has been taking [facility] for the pain but it persists and she has not been able to have a owel movement. she states she tried the oral medications such as magnesium citrate and has had a small amount of diarrhea around a hard stool ball that she can palpate with her finger. pt states it feels so large that she does not feel it will pass on her own. pt can no longer tolerate the pain and presented for the second time to the ER for evaluation. Patient denies fevers, denies nausea, vomiting. Patient denies rectal bleeding. Remaining ROS (-). - Related Data Home Medications Medication Instructions Recorded Confirmed Dextroamphetamine/Amphetamine 30 mg PO QAM 06/16/18 08/16/20 [Adderall Xr] valACYclovir [Valtrex] 500 mg PO BID PRN 08/16/20 08/16/20 Previous Rx's Medication Instructions Recorded Acetaminophen Tab [Tylenol Tab] 1,000 mg PO Q6HR PRN #30 tablet 09/02/19 Ibuprofen [Motrin] 600 mg PO Q8HR PRN #30 tab 09/02/19 Lactulose 10 gm PO DAILY PRN 3 Days #30 ml 08/16/20 diazePAM [Valium] 2 mg PO ONCE PRN 1 Days #1 tab 08/16/20 Allergies Allergy/AdvReac Type Severity Reaction Status Date / Time shellfish derived [Shellfish] Allergy Rash/Hives Verified 08/16/20 12:24 Review of Systems ROS Statement: Those systems with pertinent positive or pertinent negative responses have been documented in the HPI. ROS Other: All systems not noted in ROS Statement are negative. Past Medical History Past Medical History: GERD/Reflux, GI Bleed, Musculoskeletal Disorder Additional Past Medical History / Comment(s): Hemorrhoids/rectal bleeding; hx of bronchitis, past hx hip prob, tinnitus. Gallstones currently History of Any Multi-Drug Resistant Organisms: None Reported Past Surgical History: Hysterectomy, Orthopedic Surgery Additional Past Surgical History / Comment(s): R hip arthroscopy; wisdom teeth. Colonoscopy 2018, EGD 06/30/19., hemorroidectomy Past Anesthesia/Blood Transfusion Reactions: No Reported Reaction, Family History of Problems w/ Anesthesia Additional Past Anesthesia/Blood Transfusion Reaction / Comment(s): Grandmother requires more Rx for sedation. Past Psychological History: ADD/ADHD, Anxiety, Depression Smoking Status: Never smoker Past Alcohol Use History: Rare Past Drug Use History: None Reported - Past Family History Father Family Medical History: Cancer Additional Family Medical History / Comment(s): skin CA General Exam - General Exam Comments Initial Comments: General: The patient is awake and alert, in no distress Eye: +3 mm pupils are equal, round and reactive to light, extra-ocular movements are intact. No nystagmus. There is normal conjunctiva bilaterally. No signs of icterus. Ears, nose, mouth and throat: There are moist mucous membranes and no oral lesions. Neck: The neck is supple, there is no tenderness or JVD. Cardiovascular: There is a regular rate and rhythm. No murmur, rub or gallop is appreciated. Respiratory: Lungs are clear to auscultation, respirations are non-labored, breath sounds are equal. No wheezes, stridor, rales, or rhonchi. Gastrointestinal: Soft, non-distended, non-tender abdomen without masses or organomegaly noted. There is no rebound or guarding present. Post surgical changes of rectal, no drainage. soft stool in rectum, very tender to palpation. Musculoskeletal: Normal ROM, no tenderness. Strength 5/5. Sensation intact. R adial pulses equal bilaterally 2+. Neurological: A&O x 3. CN II-XII intact grossly, There are no obvious motor or sensory deficits. Coordination appears grossly intact. Speech is normal. Skin: Skin is warm and dry and no rashes or lesions are noted. Psychiatric: Cooperative, appropriate mood & affect, normal judgment. Limitations: no limitations Course Vital Signs 08/16/20 08/16/20 08/16/20 10:56 12:24 14:15 Temperature 98 F 97.6 F 97.9 F Pulse Rate 103 H 89 78 Respiratory 18 16 16 Rate Blood Pressure 117/75 110/72 110/68 O2 Sat by Pulse 98 98 99 Oximetry 08/16/20 17:01 Temperature 97.6 F Pulse Rate 82 Respiratory 18 Rate Blood Pressure 112/74 O2 Sat by Pulse 99 Oximetry - Reevaluation(s) Reevaluation #1: Dr. Priest called back, he stated that small volume enemas was acceptable. he states pt may be discharged home on oral laxatives. 08/16/20 = Medical Decision Making - Medical Decision Making 35yo female presenting for cc of constipation. surgeon Dr. Priest stated that a small volume enema is safe. he states that patient may be discharge with oral laxatives. pt has small amount of stool after the laxative. pt hydrated. I attempted digits disimpaction but there was no large formed stool, very soft stool. pt at this time has no obstruction, no fever, no nausea, no vomiting. she has post operative pain slightly increased from the enema/disimpaction which is to be expected and i feel she is stabel for discharge with lactulose and colorectal surgical follow-up. pt states she is going to try again tomorrow to have a larger bowel movement. i advised the patient to discontinue the norco as i feel this is contributing to her constipation. pt is agreeable to this care plan and dishcarge. Dr Lr agreeable to care plan. Disposition Clinical Impression: Constipation, Post-operative pain Disposition: HOME SELF-CARE Condition: Good Instructions (If sedation given, give patient instructions): Constipation (ED), High Fiber Diet (ED) Additional Instructions: Please use medication as discussed. Please follow-up with PCP or surgeon in next 1-2 days. Please return to emergency room if the symptoms increase or worsen or for any other concerns. Prescriptions: Lactulose 10 gm PO DAILY PRN 3 Days #30 ml PRN Reason: Constipation diazePAM [Valium] 2 mg PO ONCE PRN 1 Days #1 tab PRN Reason: Constipation Is patient prescribed a controlled substance at d/c from ED?: No Referrals: Thomas May MD [Primary Care Provider] - 1-2 days Time of Disposition: 16:02
[2020-08-16] MEDS ORDERED: SODIUM CHLORIDE 0.9% 1,000 ML IV ONE (12:40)
--- NOTE | 2020-08-16 13:38 | XR ---
EXAMINATION TYPE: XR KUB DATE OF EXAM: 08/16/2020 Comparison: None Clinical History: 35-year-old female constipation Findings: Lung bases are clear. No evidence for free intraperitoneal air. There is solid stool within the rectum measuring up to 5.9 mm wide. Otherwise, air fluid levels withi n the colon and possibly within some of the right-sided small bowel loops. No evidence small bowel di latation. Phlebolith in the left side of the pelvis. Impression: 1. Solid stool in the rectum measuring 5.9 cm wide. 2. Otherwise, there is liquid stool/air fluid levels within the right side of the colon and possibly small air-fluid levels within nondilated right abdominal small bowel loops. Overall findings favor en teritis/ileitis rather than distal colonic obstruction at this time. Follow-up as indicated.
[2020-08-16 17:02] VITALS: BP 112/74; PULSE 82; RESP 18; TEMP 97.6
== END 2020-08-16 17:29 | disposition home or self-care (01) ==
LOC: EC 10:53
DX: K59.00 Constipation, unspecified (principal); G89.18 Other acute postprocedural pain; F90.9 Attention-deficit hyperactivity disorder, unspecified type; F41.9 Anxiety disorder, unspecified; F32.9 Major depressive disorder, single episode, unspecified; Z79.899 Other long term (current) drug therapy; Z91.013 Allergy to seafood; Z98.890 Other specified postprocedural states
CPT/HCPCS: 74018; 96360; 99284

== ENCOUNTER 2020-11-27 19:44 | Emergency (ER) | payer OTHER ==
[2020-11-27 19:57] VITALS: PULSE 75; TEMP 98.2
--- NOTE | 2020-11-27 20:22 | XR ---
EXAMINATION TYPE: XR KUB DATE OF EXAM: 11/27/2020 COMPARISON: NONE HISTORY: Pain TECHNIQUE: Single supine KUB image of the abdomen is obtained FINDINGS: Small bowel demonstrates no evidence for dilatation or air fluid levels. Moderate fecal stasis ident ified. Gas and fecal material is seen in non-distended colon. No convincing evidence for pneumoperitoneum. No unusual calcifications. The lung bases are clear. The osseous structures are intact. IMPRESSION: 1. Overall nonobstructive bowel gas pattern.
[2020-11-27] MEDS ORDERED: MAGNESIUM HYDROXIDE 2,400 MG/10 ML CUP PO STA (20:32)
--- NOTE | 2020-11-27 20:58 | ED ---
Abdominal Pain HPI - General Chief Complaint: Abdominal Pain Stated Complaint: Rectal Pain Time Seen by Provider: 11/27/20 20:00 Source: patient, RN notes reviewed Mode of arrival: ambulatory Limitations: no limitations - History of Present Illness Initial Comments: This a 35-year-old female presents emergency Department chief complaint of constipation, rectal pain. Patient states that she's had multiple surgeries which started from a hemorrhoidectomy. Patient states that she had a recent rectal surgery 4 weeks ago in which she had some muscles cut Patient states that that she was doing well but states that she had decreased stool output last week. She states she's been taking every laxative that she can't get a hold of she's tried suppositories and enemas. She states is not helping. She states that she did notice some small amount of blood. Patient states she has an appointment with her surgeon tomorrow. But states that she cannot weight secondary to constipation. Denies fevers or chills no nausea vomiting. - Related Data Home Medications Medication Instructions Recorded Confirmed Dextroamphetamine/Amphetamine 30 mg PO QAM 06/16/18 08/16/20 [Adderall Xr] valACYclovir [Valtrex] 500 mg PO BID PRN 08/16/20 08/16/20 Previous Rx's Medication Instructions Recorded Acetaminophen Tab [Tylenol Tab] 1,000 mg PO Q6HR PRN #30 tablet 09/02/19 Ibuprofen [Motrin] 600 mg PO Q8HR PRN #30 tab 09/02/19 Lactulose 10 gm PO DAILY PRN 3 Days #30 ml 08/16/20 diazePAM [Valium] 2 mg PO ONCE PRN 1 Days #1 tab 08/16/20 Allergies Allergy/AdvReac Type Severity Reaction Status Date / Time shellfish derived [Shellfish] Allergy Rash/Hives Verified 11/27/20 19:57 Review of Systems ROS Statement: Those systems with pertinent positive or pertinent negative responses have been documented in the HPI. ROS Other: All systems not noted in ROS Statement are negative. Past Medical History Past Medical History: GERD/Reflux, GI Bleed, Musculoskeletal Disorder Additional Past Medical History / Comment(s): Hemorrhoids/rectal bleeding; hx of bronchitis, past hx hip prob, tinnitus. Gallstones currently History of Any Multi-Drug Resistant Organisms: None Reported Past Surgical History: Hysterectomy, Orthopedic Surgery Additional Past Surgical History / Comment(s): R hip arthroscopy; wisdom teeth. Colonoscopy 2018, EGD 06/30/19., hemorroidectomy Past Anesthesia/Blood Transfusion Reactions: No Reported Reaction, Family History of Problems w/ Anesthesia Additional Past Anesthesia/Blood Transfusion Reaction / Comment(s): Grandmother requires more Rx for sedation. Past Psychological History: ADD/ADHD, Anxiety, Depression Smoking Status: Never smoker Past Alcohol Use History: Rare Past Drug Use History: None Reported - Past Family History Father Family Medical History: Cancer Additional Family Medical History / Comment(s): skin CA General Exam Limitations: no limitations General appearance: alert, in no apparent distress Head exam: Present: atraumatic, normocephalic, normal inspection Eye exam: Present: normal appearance. Absent: scleral icterus, conjunctival injection, periorbital swelling Respiratory exam: Present: normal lung sounds bilaterally. Absent: respiratory distress, wheezes, rales, rhonchi, stridor Cardiovascular Exam: Present: regular rate, normal rhythm, normal heart sounds. Absent: systolic murmur, diastolic murmur, rubs, gallop, clicks GI/Abdominal exam: Present: soft, tenderness (Minimal lower), normal bowel sounds. Absent: distended, guarding, rebound, rigid Back exam: Absent: CVA tenderness (R), CVA tenderness (L) Course Vital Signs 11/27/20 19:53 Temperature 98.2 F Pulse Rate 75 Respiratory 20 Rate Blood Pressure 122/80 O2 Sat by Pulse 92 L Oximetry Disposition Clinical Impression: Constipation Disposition: HOME SELF-CARE Condition: Stable Instructions (If sedation given, give patient instructions): Constipation (ED) Additional Instructions: Please return to the Emergency Department if symptoms worsen or any other c oncerns. Is patient prescribed a controlled substance at d/c from ED?: No Referrals: Thomas May MD [Primary Care Provider] - 1-2 days Time of Disposition: 23:08
[2020-11-27] MEDS ORDERED: DIAZEPAM 5 MG/ML 2 ML INJ IM ONE (22:11)
[2020-11-27] MEDS ORDERED: PEG 3350-NA SULF,BICARB,CL/KCL 4,000 ML BOTTLE PO ONE (23:06)
[2020-11-27] MEDS ORDERED: HYDROcodone/APAP 5-325MG 1 EACH TAB PO STA (23:06)
[2020-11-27 23:42] VITALS: BP 116/86; RESP 16
== END 2020-11-27 23:42 | disposition home or self-care (01) ==
LOC: EC 19:44
DX: K59.00 Constipation, unspecified (principal); F90.9 Attention-deficit hyperactivity disorder, unspecified type; Z79.899 Other long term (current) drug therapy; Z91.013 Allergy to seafood
CPT/HCPCS: 74018; 99284; 96372; J3360

== ENCOUNTER → 2021-01-02 | Outpatient (CLI) | payer OTHER ==
--- NOTE | 2021-01-02 13:50 | MM ---
Reason for exam: clinical finding. History: Family history of breast cancer in maternal uncle and breast cancer in maternal aunt. Took hormonal contraceptives for 11 years beginning at age 33. Indicated problem(s): lump or thickening in both breasts. Physical Findings: Nurse Summary: 2.5 and 1.5cm nodule in the right breast at 10-12 o'clock and 6-7 o'clock (nurse db). MG 3D Diag Mammo W/Cad ADRIAN Bilateral CC and MLO view(s) were taken. XCCL view(s) were taken of the left breast. The breast tissue is extremely dense which could obscure a lesion on mammography. These results were verbally communicated with the patient and result sheet given to the patient on 01/02/21. ASSESSMENT: Incomplete: need additional imaging evaluation, BI-RAD 0 RECOMMENDATION: Ultrasound of both breasts. (at sites of palpable)
--- NOTE | 2021-01-02 13:51 | USB ---
Reason for exam: additional evaluation requested from abnormal screening. History: Family history of breast cancer in maternal uncle and breast cancer in maternal aunt. Took hormonal contraceptives for 11 years beginning at age 33. US Breast Limited BILAT Right limited breast ultrasound including focal area of concern, retroareolar and axilla demonstrates no cystic or solid lesion seen. Left limited breast ultrasound including focal area of concern, retroareolar and axilla demonstrates no cystic or solid lesion seen. No sonographic finding at site of palpable lumps. These results were verbally communicated with the patient and result sheet given to the patient on 01/02/21. ASSESSMENT: Benign, BI-RAD 2 RECOMMENDATION: Routine screening mammogram of both breasts at age 42. Manage on a clinical basis with regard to palpable lumps.
== END | disposition home or self-care (01) ==
LOC: RADMAMWWP 09:37
PROVIDERS: ATTEND Family Medicine
DX: N63.11 Unspecified lump in the right breast, upper outer quadrant (principal); N63.13 Unspecified lump in the right breast, lower outer quadrant; N63.21 Unspecified lump in the left breast, upper outer quadrant; R92.8 Other abnormal and inconclusive findings on diagnostic imaging of breast; Z80.3 Family history of malignant neoplasm of breast
CPT/HCPCS: 77062; 77066